=== PATIENT | female | born 1990 | race African-American/Black ===

== ENCOUNTER 2017-06-06 16:50 | Emergency (ER) | payer OTHER ==
[~2017-06-06] VITALS: Ht 160 cm; Wt 83.9 kg
[~2017-06-06 16:50] MED LIST: ALLEGRA ALLERG180 MG PO; BACTRIM DS TAB1 EACH PO; COLACE100 MG; DOXYCYCLINE 10100 MG PO; FLONASE 0.05%50 MCG NASAL; HYDROCODON-ACE1 EAC7; IBUPROFEN 800800 M1; KEFLEX500 MG PO; NOHOMEMEDICATIONS; NORCO 5-325 TA1 EACH PO; PRENATAL; PROTONIX 20 MG20 M1 PO; ULTRAM 50MG TAB50 MG PO
== END 2017-06-06 18:24 | disposition home or self-care (01) ==
LOC: ER 16:50
DX: T16.2XXA Foreign body in left ear, initial encounter (principal); X58.XXXA Exposure to other specified factors, initial encounter; Z87.891 Personal history of nicotine dependence; Y93.89 Activity, other specified; Y92.89 Other specified places as the place of occurrence of the external cause; Y99.8 Other external cause status

== ENCOUNTER 2017-08-12 19:31 | Emergency (ER) | payer OTHER ==
[~2017-08-12] VITALS: Ht 160 cm; Wt 83.9 kg
[2017-08-12] MEDS ORDERED: CIPRODEX OTIC7.5 ML OTIC (20:34)
[2017-08-12] MEDS ORDERED: ULTRAM 50MG TAB50 MG PO (20:34)
[2017-08-12] MEDS ORDERED: BACTRIM DS TAB1 EACH PO (20:34)
[2017-08-12 20:51] VITALS: BP 156/81
== END 2017-08-12 20:52 | disposition home or self-care (01) ==
LOC: ER 19:31
DX: L72.3 Sebaceous cyst (principal); H66.91 Otitis media, unspecified, right ear; Z87.891 Personal history of nicotine dependence

== ENCOUNTER 2020-06-18 10:39 | Emergency (ER) | payer OTHER ==
[~2020-06-18] VITALS: Ht 160 cm; Wt 97.5 kg
[~2020-06-18 10:39] MED LIST changes: +CIPRODEX OTIC7.5 ML OTIC
[2020-06-18 10:45] VITALS: BP 133/85
== END 2020-06-18 11:05 | disposition home or self-care (01) ==
LOC: ER 10:39
DX: S61.211D Laceration without foreign body of left index finger without damage to nail, subsequent encounter (principal); Z87.891 Personal history of nicotine dependence; Z79.2 Long term (current) use of antibiotics; Z79.899 Other long term (current) drug therapy; W25.XXXD Contact with sharp glass, subsequent encounter